=== PATIENT | female | born 1995 | race Asian ===

== ENCOUNTER → 2020-02-25 17:06 | Outpatient (CLI) | payer OTHER, SELFPAY ==
--- NOTE | 2020-02-25 17:10 | DI.RAD.S_ITS ---
PROCEDURE: XR FOOT RT MIN 3V INDICATIONS: swelling right anterior foot with pain to 1st MTP TECHNIQUE: 3 views of the foot were acquired. COMPARISON: None. FINDINGS: Bones: No fractures or dislocations. No suspicious bony lesions. Soft tissues: Mild distal soft tissue swelling is seen. IMPRESSION: Distal soft tissue swelling, without an acute bony abnormality identified. Dictated by: Pato Yoder M.D. on 02/25/2020 at 16:24 Approved by: Pato Yoder M.D. on 02/25/2020 at 16:25
== END ==
PROVIDERS: Referring Provider Physician Assistant; Visit Provider Physician Assistant
DX: M79.89 Other specified soft tissue disorders (principal)
CPT/HCPCS: 73630